=== PATIENT | female | born 1980 | race Caucasian/White ===

== ENCOUNTER 2018-04-06 05:21 | Inpatient (IN) | payer OTHER ==
[2018-04-06] VITALS (11 sets, daily range): BP systolic 124–148; BP diastolic 67–88
[~2018-04-06] VITALS: Ht 160 cm; Wt 91.6 kg
[~2018-04-06 05:21] MED LIST: AMOXICILLIN875 MG PO; AZATHIOPRINE50 MG PO; CIPRO500 MG PO; CIPROFLOXACIN250 MG PO; CITALOPRAM HBR10 MG PO; COLACE100 MG PO; DILAUDID1 MG/ML IV; FLAGYL500 MG PO; LIDOCAINE-HC 3-07 G2 PR; LIDOCAINE700 MG TD; LOMOTIL TABLET1 EACH PO; METRONIDAZOLE500 MG PO; ONDANSETRON4 MG/2 ML IV; OXAYDO5 MG PO; OXYCODONE HCL5 MG PO; PANTOPRAZOLE SO40 MG PO; PARAGARD T 3801 EAC1 IY; PERCOCET 5/31 TABLET PO; PRENATAL TABLE1 EACH PO; RECTIV30 GM PR; TYLENOL REGULA325 MG PO; VANCOMYCIN1 GM/200 M IV; VITRON-C TABLE1 EACH PO; ZOFRAN ODT4 MG PO; ZOSYN 3.373.375 GM/5 IV
[2018-04-06 06:17] LABS: AMPHETAMINE NEGATIVE (500 ng/mL); BARBITURATES NEGATIVE (200 ng/mL); BENZODIAZEPINES NEGATIVE (150 ng/mL); BUPRENORPHINE NEGATIVE (10 ng/mL); COCAINE NEGATIVE (150 ng/mL); METHADONE NEGATIVE (200 ng/mL); METHAMPHETAMINE NEGATIVE (500 ng/mL); OPIATES (MORPHINE) NEGATIVE (100 ng/mL); OXYCODONE NEGATIVE (100 ng/mL); PHENCYCLIDINE NEGATIVE (25 ng/mL); PROPOXYPHENE NEGATIVE (300 ng/mL); THC CANNABINOIDS NEGATIVE (50 ng/mL); TRICYCLIC ANTIDEPRESSANTS NEGATIVE (300 ng/mL)
[2018-04-06] MEDS ORDERED: IBUPROFEN800 MG PO (08:55)
[2018-04-06] MEDS ORDERED: ENDOCET 5-3251 EACH PO (08:55)
[2018-04-07 02:02] VITALS: BP 140/86
[2018-04-07 06:02] LABS: BASOPHIL (%) 0.2 % (0-1); EOSINOPHIL (%) 0.7 % (0-5); EOSINOPHIL COUNT 0.1 K/uL (0-0.3); HEMATOCRIT 32.1 % (36.0-46.0); HEMOGLOBIN 10.9 G/DL (11.9-15.5); IMMATURE GRANULOCYTE (%) 0.5 % (0.0-0.7); LYMPHOCYTE (%) 13.9 % (15-42); LYMPHOCYTE COUNT 2.1 K/uL (1.0-2.8); MCH 33.2 PG (29.0-34.0); MCV 97.9 FL (83-99); MONOCYTE (%) 7.7 % (3-12); MONOCYTE COUNT 1.2 K/uL (0-0.8); NEUTROPHIL COUNT 11.6 K/uL (1.8-6.4); PLATELET COUNT 157 K/uL (156-360); RBC DIS.WIDTH-CV 12.3 % (11.8-14.6); RED BLOOD COUNT 3.28 M/uL (3.80-5.20)
[2018-04-07 07:29] VITALS: BP 126/81
[2018-04-07 11:53] VITALS: BP 151/77
[2018-04-07 11:55] VITALS: BP 153/78
[2018-04-07 21:45] VITALS: BP 133/85
[2018-04-08 07:30] VITALS: BP 163/78
[2018-04-08 08:05] VITALS: BP 128/74
[2018-04-08] MEDS ORDERED: LABETALOL HCL100 MG PO (08:19)
== END 2018-04-08 13:57 | disposition home or self-care (01) | DRG 765 ==
LOC: 2WEST 05:21 → 2SOUTH 09:18 → 2WEST 04-08 13:57
PROVIDERS: Obstetrics & Gynecology
DX: O99.62 Diseases of the digestive system complicating childbirth (principal); Z30.2 Encounter for sterilization; K50.918 Crohn's disease, unspecified, with other complication; K62.4 Stenosis of anus and rectum; Z93.3 Colostomy status; O99.824 Streptococcus B carrier state complicating childbirth; O99.214 Obesity complicating childbirth; E66.9 Obesity, unspecified; O26.03 Excessive weight gain in pregnancy, third trimester; Z3A.39 39 weeks gestation of pregnancy; Z37.0 Single live birth; Z87.891 Personal history of nicotine dependence
CPT/HCPCS: 36415; 80053; 85025; 86850; 86900; 86901; 88304; J0690; J1100; J2274; J2405; J3010; J7120; J7500